=== PATIENT | female | born 1965 | race Caucasian/White ===

== ENCOUNTER 2017-08-06 19:19 | Observation (INO) ==
[2017-08-06] MEDS ORDERED: *HR* Heparin 5,000 UNIT/ML VIAL ONE (19:31)
[2017-08-06] MEDS ORDERED: *HR* Ticagrelor 90 MG TABLET ONE (19:31)
[2017-08-06] MEDS ORDERED: 0.9 % Sodium Chloride 1,000 ML ONE (19:31)
[2017-08-06] MEDS ORDERED: Aspirin 81 MG TAB.CHEW ONE (19:31)
[2017-08-06] MEDS ORDERED: Nitroglycerin 0.4 MG TAB.SUBL SL PRN (19:44)
[2017-08-06 19:56] LABS: Basophils % 0.4 %; Eosinophils # 0.2 K/mcL (0.0-0.6); Hematocrit 38.7 % (35.3-44.9); Hemoglobin 12.5 g/dL (11.5-15.4); Immature Granulocytes % 0.5 % (0-4); Lymphocytes # 3.1 K/mcL (0.6-4.6); Lymphocytes % 30.3 %; Mean Corpuscular HGB Conc 32.3 g/dL (31.6-35.5); Mean Corpuscular Hemoglobin 26.3 pg (28.0-33.3); Mean Corpuscular Volume 81.5 fL (83.0-100.0); Mean Platelet Volume 10.6 fL (9.4-12.4); Monocytes # 0.7 K/mcL (0.0-1.3); Neutrophils # 6.1 K/mcL (1.6-8.9); Platelet Count 216 K/mcL (140-400); Red Blood Count 4.75 M/mcL (3.82-4.97); Red Cell Distribution Width 13.9 % (11.5-14.5); Segmented Neutrophils % 59.8 %
[2017-08-06 20:01] LABS: INR 1.1; Prothrombin Time 11.4 Seconds (9.4-12.1)
[2017-08-06 20:04] LABS: Activated Partial Thrombo Time 31.9 Seconds (26.0-36.0)
[2017-08-06 20:10] LABS: BUN/Creatinine Ratio 24 (6-26); Blood Urea Nitrogen 18 mg/dL (6-20); Calcium 9.6 mg/dL (8.6-10.3); Carbon Dioxide 27 mEq/L (23-29); Chloride 105 mEq/L (98-107); Glucose 99 mg/dL (70-105); Osmolality,Calculated 288 (280-300); Potassium 3.5 mEq/L (3.5-5.1); Sodium 138 mEq/L (136-145); eGFR For African Americans > 60 (> 60); eGFR For Non-African Americans > 60 (> 60)
--- NOTE | 2017-08-06 20:16 | Emergency Department Note ---
Disposition Clinical Impression: Chest pain Qualifiers: Chest pain type: unspecified Qualified Code(s): R07.9 - Chest pain, unspecified Disposition: Admitted As Inpatient Condition: Good Referrals: Orion Everett MD [Primary Care Provider] - Forms: ED Satisfaction Letter Chest Pain HPI - General Chief Complaint: ED Chest Pain Stated Complaint: chest pain Time Seen by Provider: 08/06/17 19:20 Source: patient, EMS Limitations: no limitations Vital Signs Reviewed: Yes Nursing Notes Reviewed: Yes - History of Present Illness HPI Narrative: Patient presents for evaluation of chest pain. Patient had chest pain episode that started yesterday and last for approximately 2 hours. Worse with exertion. Better with rest and time. Patient had chest pain today that started at 4:30 PM. Has been constant since then. Associated shortness of breath and diaphoresis. Patient has not been able to get comfortable in the bed. Her initial prehospital EKG does have worrisome lesions to V1 and V2 upon completion of our EKG there is concern for mild abnormality in anterior leads. 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 Patient's mom had early heart disease and received multiple stents. She has hypertension and high cholesterol. Nonsmoker. Severity scale (1-10): 6 - Related Data Home Medications Medication Instructions Recorded Confirmed Clindamycin 07/07/16 CloNIDine HCl 07/07/16 07/07/16 Gas Relief 07/07/16 Inderal 07/07/16 Lidoderm 07/07/16 Linzess 07/07/16 Lorazepam 07/07/16 Losartan 07/07/16 Nabumetone 07/07/16 Ondansetron 07/07/16 Oxycodone-Acetaminophn 5-325/5 07/07/16 Oxycontin 07/07/16 Qnasl 07/07/16 Sertraline HCl 07/07/16 Tizanidine HCl 07/07/16 Vitamin D 07/07/16 Previous Rx's Medication Instructions Recorded Azithromycin [Azithromycin 6-Tab 250 mg PO DAILY #6 tab 07/07/16 Pack] Benzonatate [Tessalon] 200 mg PO TID PRN #30 capsule 07/07/16 Fluconazole [Diflucan] 150 mg PO Q3D #2 tab 02/23/17 Guaifenesin/Pseudoephedrne HCl 1 each PO BID #20 tab.er.12h 02/23/17 [Mucinex D ER 1,200-120 mg Tab] Loratadine [Allergy Relief] 10 mg PO DAILY #30 tablet 02/23/17 Doxycycline 100 mg PO BID #14 capsule 03/15/17 Mupirocin [Bactroban Oint] 1 appl TP BID 7 Days tube 03/15/17 Allergies Allergy/AdvReac Type Severity Reaction Status Date / Time clarithromycin [From Biaxin] Allergy Nausea Verified 07/07/16 15:45 codeine Allergy Rash Verified 07/07/16 15:45 Erythromycin Base Allergy Nausea Verified 07/07/16 15:45 sulfamethoxazole Allergy Rash Verified 07/07/16 15:45 [From Bactrim] trimethoprim [From Bactrim] Allergy Rash Verified 07/07/16 15:45 Review of Systems: CONSTITUTIONAL: Diaphoresis No weight loss, fever, chills, weakness or fatigue. HEENT: Eyes: No visual changes. Ears, Nose, Throat: No hearing loss, difficulty talking or unable to swallow. SKIN: No rash or itching. CARDIOVASCULAR: Chest pain RESPIRATORY: Shortness of breath GASTROINTESTINAL: No anorexia, nausea, vomiting or diarrhea. No abdominal pain or blood. GENITOURINARY: No burning on urination or hematuria. NEUROLOGICAL: No headache, dizziness, syncope, paralysis, ataxia, numbness or tingling in the extremities. No change in bowel or bladder control. MUSCULOSKELETAL: No muscle pain, back pain, joint pain or stiffness. Chest Pain PMH - Past Medical History Medical history: Reports: hyperlipidemia, hypertension Psychiatric history: Reports: no psych history - Social History Smoking Status: Never smoker Alcohol use: Reports: none Drug use: Reports: none Physical Exam General: Well appearing, nontoxic, no acute distress Head: Normocephalic Atraumatic Eyes: PERRL, EOMI ENT: Airway patent, no stridor Neck: supple, no meningismus Chest: Lungs clear to auscultation bilateral Cardiac: Regular rate and rhythm, no murmurs, rubs or gallops Abdomen: soft, nontender, nondistended; no guarding, rebound, or tenderness to percussion Musculoskeletal: Calves symmetric, nontender, no palpable cord Skin: No rash, normal skin tone Neuro: Alert and Oriented to person, place, and time; No focal deficit, CN 2-12 symmetric and intact - General Limitations: no limitations General appearance: alert Course - Reevaluation(s) Reevaluation #1: Patient's chest pain resolved with nitroglycerin. Patient said intermittent bigeminy with associated PVCs. The patient etiologies include cardiac disease versus vasospasm versus other. - Consultations Consultation #1: STEMI alert was activated secondary to concerns of ST elevations in V1 and V2. Not typical or straightforward STEMI. Only receptacles or with the wide complex beats. Discussed with Dr. Freedman. Patient does not meet STEMI alert criteria. STEMI alert canceled. Consultation #2: Discussed with hospitalist, Dr. Ro. Patient accepted for admission. Vital Signs Temperature 97.6 F 08/06/17 19:21 Pulse Rate 79 08/06/17 19:21 Respiratory Rate 20 08/06/17 19:21 Blood Pressure 133/71 08/06/17 19:21 O2 Sat by Pulse Oximetry 99 08/06/17 19:21 Temperature 97.6 F 08/06/17 19:21 Pulse Rate 58 08/06/17 20:50 Respiratory Rate 16 08/06/17 20:50 Blood Pressure 98/57 08/06/17 20:50 O2 Sat by Pulse Oximetry 98 08/06/17 20:50 Oxygen Delivery Oxygen Delivery Room Air Chest Pain - Medical Records Medical records reviewed: Yes I reviewed the patient's medical records. - Lab Data Lab results reviewed: Yes I reviewed the patient's lab results. Result diagrams: 08/06/17 19:45 08/06/17 19:45 Lab Results 08/06/17 08/06/17 08/06/17 Range/Units 19:45 19:45 19:45 WBC 10.3 (4.3-11.1) K/mcL RBC 4.75 (3.82-4.97) M/mcL Hgb 12.5 (11.5-15.4) g/dL Hct 38.7 (35.3-44.9) % MCV 81.5 L (83.0-100.0) fL MCH 26.3 L (28.0-33.3) pg MCHC 32.3 (31.6-35.5) g/dL RDW 13.9 (11.5-14.5) % Plt Count 216 (140-400) K/mcL MPV 10.6 (9.4-12.4) fL Immature Gran % 0.5 (0-4) % Seg Neutrophils % 59.8 % Lymphocytes % 30.3 % Monocytes % 7.0 % Eosinophils % 2.0 % Basophils % 0.4 % Neutrophils # 6.1 (1.6-8.9) K/mcL Lymphocytes # 3.1 (0.6-4.6) K/mcL Monocytes # 0.7 (0.0-1.3) K/mcL Eosinophils # 0.2 (0.0-0.6) K/mcL Basophils # 0.0 (0.0-0.2) K/mcL PT 11.4 (9.4-12.1) Seconds INR 1.1 APTT 31.9 (26.0-36.0) Seconds Sodium 138 (136-145) mEq/L Potassium 3.5 (3.5-5.1) mEq/L Chloride 105 (98-107) mEq/L Carbon Dioxide 27 (23-29) mEq/L BUN 18 (6-20) mg/dL Creatinine 0.74 (0.60-1.20) mg/dL Est GFR ( Amer) > 60 (> 60) Est GFR (Non-Af Amer) > 60 (> 60) BUN/Creatinine Ratio 24 (6-26) Glucose 99 (70-105) mg/dL Calculated Osmolality 288 (280-300) Calcium 9.6 (8.6-10.3) mg/dL Troponin I (< 0.04) ng/mL 08/06/17 Range/Units 19:45 WBC (4.3-11.1) K/mcL RBC (3.82-4.97) M/mcL Hgb (11.5-15.4) g/dL Hct (35.3-44.9) % MCV (83.0-100.0) fL MCH (28.0-33.3) pg MCHC (31.6-35.5) g/dL RDW (11.5-14.5) % Plt Count (140-400) K/mcL MPV (9.4-12.4) fL Immature Gran % (0-4) % Seg Neutrophils % % Lymphocytes % % Monocytes % % Eosinophils % % Basophils % % Neutrophils # (1.6-8.9) K/mcL Lymphocytes # (0.6-4.6) K/mcL Monocytes # (0.0-1.3) K/mcL Eosinophils # (0.0-0.6) K/mcL Basophils # (0.0-0.2) K/mcL PT (9.4-12.1) Seconds INR APTT (26.0-36.0) Seconds Sodium (136-145) mEq/L Potassium (3.5-5.1) mEq/L Chloride (98-107) mEq/L Carbon Dioxide (23-29) mEq/L BUN (6-20) mg/dL Creatinine (0.60-1.20) mg/dL Est GFR ( Amer) (> 60) Est GFR (Non-Af Amer) (> 60) BUN/Creatinine Ratio (6-26) Glucose (70-105) mg/dL Calculated Osmolality (280-300) Calcium (8.6-10.3) mg/dL Troponin I < 0.03 (< 0.04) ng/mL - Radiology Data Radiology results reviewed: Yes I reviewed the patient's radiology results. - EKG Data EKG attestation: Yes I reviewed and interpreted this EKG. EKG results narrative: EKG shows sinus rhythm with every sinus beat followed by a premature ventricular complex. The rate is 77. The ST segment of V1 and V2 is mildly elevated. just shy of [address] elevation. The wider complex lesion has elevation of 2 mm but does not qualifies for Scarbosa criteria. The wide- complex beats of inferior lateral leads shows ST depression. Attestation Statement - Attestation Attestation: I, Nelson Perez MD, personally evaluated this patient and discussed their management with the resident physician. I reviewed the resident's note and agree with the documented findings, medical decision making, and plan of care. 52-year-old female presents to the emergency department with a complaint of mid substernal chest pain which started about 3 hours prior to arrival. She describes the chest pain as a severe pressure in her mid chest. No radiation of the chest pain. She does complain of some nausea and shortness of breath. Mild diaphoresis. No prior history of known heart disease. Patient received aspirin per EMS. She rated the pain a 6 out of 10 at the worst. At present she rates the pain a 2 out of 10. On examination patient is a well-developed well-nourished well-appearing female in no acute distress. She is alert and oriented 3. There is no cyanosis or diaphoresis. Patient does appear somewhat anxious. Chest is nontender to palpation. Breath sounds are clear and equal bilaterally. Heart regular rate and rhythm. Abdomen is soft and nontender with normal bowel sounds. No pedal edema. EKG shows a normal sinus rhythm with frequent PVCs in a bigeminy pattern. Heart rate 78. There is some mild ST elevations in V1 and V2. A STEMI alert was called initially but after review of the EKG by the interventionalists, Dr. Freedman, the STEMI alert was canceled. Chest x-ray was negative. Labs reviewed. Troponin normal. The hospitalist, Dr. Ro, was consulted and accepted admission of the patient.
[2017-08-06] MEDS ORDERED: NON-FORMULARY MEDICATION 1 EACH EACH (Oxycodone Immed Rel 10 MG) PO PRN (23:07)
[2017-08-06] MEDS: *HR* OxyCODONE ER (12 HR) 10 MG TABLET PO SCH (23:36)
[2017-08-06] MEDS ORDERED: Naloxone 0.4 MG/ML INJ IVP PRN (23:42)
[2017-08-06] MEDS ORDERED: *HR* Enoxaparin 80 MG/0.8 ML SYRINGE SQ STA (23:42)
[2017-08-07] MEDS: 0.9 % Sodium Chloride w KCl 20 MEQ/1,000 ML MLS IVC SCH ×2 (00:32→09:19)
--- NOTE | 2017-08-07 00:51 | Internal Med History&Physical ---
Date of Encounter: 08/07/17 Time of Encounter: 23:20 Assessment and Plan (1) Chest pain Current visit: Yes Status: Acute 1. Initial concern is for PE. 2. STAT CTA chest ordered. 3. Lovenox 1 mg/kg given one time. Further dosing pending CT results. 4. Cycle troponins, EKG's, and order ECHO. 5. Consult Cardiology. Qualifiers: Chest pain type: chest pain on breathing Qualified Code(s): R07.1 - Chest pain on breathing; R07.81 - Pleurodynia (2) Symptomatic bradycardia Current visit: Yes Status: Acute 1. Stop beta xavier. 2. Monitor cardiac enzymes and electrolytes -- correct as necessary. 3. CTA chest as above to rule out PE. (3) Dyspnea Current visit: Yes Status: Acute 1. Lung exam normal. 2. Concern for PE is high. CTA chest as above. 3. Lovenox x one dose given. 4. Oxygen as needed and further care pending CT results. Qualifiers: Dyspnea type: shortness of breath Qualified Code(s): R06.02 - Shortness of breath; R06.00 - Dyspnea, unspecified; R06.01 - Orthopnea (4) DVT prophylaxis Current visit: Yes Status: Acute 1. Lovenox x one given. 2. Further prophylaxis vs full anti-coagulation to be determined after CT chest and per day team. Internal Medicine - H&P: HPI Chief complaint: chest pain; SOB Admitted From: Emergency Dept Plans for Post Hospital Care: Home History of present illness: Ms. Castillo is a 52 year old female who presents with a sudden onset of chest pain and profound shortness of breath. Symptoms started 2 days ago and persisted beyond 24 hours. Patient therefore came to the ER for evaluation. Initial workup in the ER was concerning for possible STEMI. A STEMI alert was called and the EKG was reviewed by cardiology. This was not a STEMI per cardiology. Patient was then subsequently admitted to the hospitalist service. Upon my assessment of the patient, patient complains of profound shortness of breath more so than her chest pain. The onset was sudden yesterday and has been persistent. She also complains of skipped heart beats and slow heart rate , all which are new for her. She denies any prior cardiac history or any lung problems. She states she has a history of sarcoid, but I cannot find any confirmation or documentation of that in the old records. She has never had any respiratory complications, however, from sarcoid or any other chronic illness. She is a nonsmoker and never has been. She denies any prolonged travel or any family history or personal history of blood clots. Nonetheless, given her anxiety and complaints of profound dyspnea, I am concerned about a pulmonary embolus. I therefore ordered a one-time dose of Lovenox and a stat CT angiogram of the chest to rule out PE. If these are negative, we will continue with cardiac workup. Past Med Surg Social Fam HX - Past Medical History Attestation: Yes The following information was validated with the patient. Source: patient, old records reviewed Medical history: fibromyalgia, GERD, hyperlipidemia, hypertension Psychiatric history: anxiety, depression - Past Surgical History Surgical History: cholecystectomy, hysterectomy, other (spine surgery) - Social History Smoking Status: Never smoker Smokeless Tobacco Status: No Alcohol use: none Drug use: none Current living situation: Home, With Family Activity Level: Independent ambulation Recent Out of Country Travel Within the Last 8 Weeks: No - Family History Father Living Status: Still Living Hx Family Cardiac Disorders: Yes (BRADYCARDIA) Hx Family Cancer: Yes (LYMPHOMA) Mother Living Status: Still Living Hx Family Cardiac Disorders: Yes (STROKE, CARDIAC STENT .) Internal Medicine - H&P: Meds Calcium Carbonate/Vitamin D3 [Calcium 600 + Vit D Tablet] 1 each PO DAILY [History] Docusate Sodium [Dok] 250 mg PO DAILY PRN 08/06/17 [History] Esomeprazole Magnesium [Nexium] 40 mg PO DAILY 08/06/17 [History] Lidocaine Patch [Lidoderm 5% patch] 1 each TP DAILY PRN 08/06/17 [History] Linaclotide [Linzess] 290 mcg PO DAILY 08/06/17 [History] Losartan/HCTZ [Hyzaar 50-12.5 Tablet] 1 each PO DAILY 08/06/17 [History] OxyCODONE Immed Rel [Roxicodone 10 MG] 10 mg PO BID PRN 08/06/17 [History] Oxycodone HCl [Oxycontin] 30 mg PO Q12H 08/06/17 [History] Propranolol LA (24 HR) [Inderal LA] 60 mg PO HS 08/06/17 [History] Sertraline [Zoloft] 150 mg PO HS 08/06/17 [History] Tizanidine HCl 4 mg PO Q8H PRN 08/06/17 [History] cloNIDine HCl [CloNIDine HCl] 0.1 mg PO DAILY PRN 08/06/17 [History] hydroCHLOROthiazide [Hydrochlorothiazide] 25 mg PO DAILY PRN 08/06/17 [History] 3 Allergy/AdvReac Type Severity Reaction Status Date / Time clarithromycin [From Biaxin] Allergy Nausea Verified 07/07/16 15:45 codeine Allergy Rash Verified 07/07/16 15:45 Erythromycin Base Allergy Nausea Verified 07/07/16 15:45 sulfamethoxazole Allergy Rash Verified 07/07/16 15:45 [From Bactrim] trimethoprim [From Bactrim] Allergy Rash Verified 07/07/16 15:45 - Constitutional Constitutional: no chills, no fever(s), no night sweats - EENT Eyes: no blurry vision, no change in vision Ears: no ear pain, no tinnitus Nose, mouth and throat: no nasal congestion, no sinus pressure, no sore throat - Cardiovascular Cardiovascular ROS IM: chest pain, dyspnea, dyspnea on exertion, irregular heart rhythm, lightheadedness, palpitations, no syncope - Respiratory Respiratory: dyspnea, dyspnea on exertion, no cough, no hemoptysis, no wheezing , no chest congestion, no excessive phlegm production, no change in phlegm color - Gastrointestinal Gastrointestinal: no abdominal pain, no diarrhea, no hematemesis, no hematochezia, no melena, no nausea, no vomiting - Genitourinary Genitourinary: no dysuria, no flank pain, no hematuria - Musculoskeletal Musculoskeletal ROS IM: back pain, no arthralgias - Integumentary Integumentary IM: no rash, no jaundice - Neurological Neurological ROS: dizziness, no focal weakness, no frequent falls, no headache(s ), no vertigo - Psychiatric Psychiatric: no anxiety, no depression - Endocrine Endocrine IM: no polydipsia, no polyuria - Hematologic/Lymphatic Hematologic/Lymphatic: no easy bruising, no lymphadenopathy - Allergic/Immunologic Allergic/Immunologic: no wheezing, no GI upset with certain foods - Constitutional Vitals: Temp Pulse Resp BP Pulse Ox 97.6 F 62 17 97/64 96 08/06/17 22:04 08/06/17 22:04 08/06/17 22:04 08/06/17 22:04 08/06/17 22:08 General appearance: Present: cooperative, mild distress, A&O X 3, pleasant, answers questions appropriately Exam: anxious; complaining of dyspnea and palpitations - Head Head exam: Present: atraumatic, normal inspection - Eye Eye exam: Present: EOMI, PERRL. Absent: scleral icterus Pupils: Present: normal accommodation - ENT ENT exam: Present: mucous membranes dry, normal exam - Neck Neck exam general surgery: Present: full ROM, normal inspection. Absent: tenderness, supple - Expanded Neck Exam Neck exam: Absent: carotid bruit - Respiratory Respiratory exam: Present: CTAB. Absent: chest wall tenderness, rales, rhonchi , wheezes - Cardiovascular Cardiovascular exam: Present: bradycardia (HR in the 40's on auscultation), irregular rhythm, +S1, +S2. Absent: diastolic murmur, JVD, systolic murmur - GI/Abdominal GI/Abdominal exam: Present: normal bowel sounds, soft. Absent: hepatomegaly, mass, splenomegaly, tenderness - Extremities Exam Extremities exam: Present: full ROM, warm, radial pulses palpable and symmetrical. Absent: calf tenderness, cyanotic, joint swelling, pedal edema, tenderness - Back Exam Back exam: Absent: CVA tenderness (L), CVA tenderness (R) - Neurological Exam Neurological exam: Present: alert, CN II-XII intact, oriented X3, no focal deficits - Psychiatric Psychiatric exam: Present: anxious. Absent: depressed - Skin Skin exam: Present: dry, warm. Absent: rash Internal Med - H&P Results - Labs CBC & Chem 7: 08/06/17 19:45 08/06/17 19:45 - EKG Data -: EKG Interpreted by Myself - EKG Data Prior EKG available for review: no EKG comments: 08/07/17 01:09 Sinus rhythm with bigemeny throughout EKG - Diagnostic Studies Chest x-ray Status: image reviewed by me (negative)
[2017-08-07 03:06] LABS: Basophils % 0.4 %; Eosinophils # 0.2 K/mcL (0.0-0.6); Eosinophils % 2.4 %; Hematocrit 37.2 % (35.3-44.9); Hemoglobin 11.9 g/dL (11.5-15.4); Immature Granulocytes % 0.7 % (0-4); Lymphocytes # 3.4 K/mcL (0.6-4.6); Lymphocytes % 37.6 %; Mean Corpuscular Hemoglobin 26.3 pg (28.0-33.3); Mean Corpuscular Volume 82.1 fL (83.0-100.0); Mean Platelet Volume 10.9 fL (9.4-12.4); Monocytes # 0.6 K/mcL (0.0-1.3); Monocytes % 6.2 %; Neutrophils # 4.7 K/mcL (1.6-8.9); Platelet Count 168 K/mcL (140-400); Red Blood Count 4.53 M/mcL (3.82-4.97); Segmented Neutrophils % 52.7 %
[2017-08-07 03:26] LABS: Alanine Aminotransferase 13 Units/L (7-52); Albumin 3.8 g/dL (3.5-5.7); Albumin/Globulin Ratio 1.7 (1.1-2.2); Alkaline Phosphatase 40 Units/L (34-104); Aspartate Amino Transferase 14 Units/L (13-39); BUN/Creatinine Ratio 24 (6-26); Bilirubin,Total 0.2 mg/dL (0.3-1.0); Blood Urea Nitrogen 17 mg/dL (6-20); Carbon Dioxide 26 mEq/L (23-29); Chloride 108 mEq/L (98-107); Chol/HDL Ratio 6.3 (0-4.9); Cholesterol 175 mg/dL (< 200); Globulin 2.2 g/dL (2.4-3.5); Glucose 116 mg/dL (70-105); HDL Cholesterol 28 mg/dL (40-59); LDL Cholesterol,Calculated 103 mg/dL (0-99); Magnesium 2.3 mg/dL (1.6-2.6); Osmolality,Calculated 291 (280-300); Potassium 3.9 mEq/L (3.5-5.1); Sodium 139 mEq/L (136-145); Triglycerides 218 mg/dL (< 150); eGFR For African Americans > 60 (> 60); eGFR For Non-African Americans > 60 (> 60)
--- NOTE | 2017-08-07 15:23 | Cardiology Consult Note ---
Date of Encounter: 08/07/17 Time of Encounter: 15:20 Assessment and Plan (1) PVCs (premature ventricular contractions) Current Visit: Yes Status: Acute Noted on admission. Would check echo and stress test if echo normal. Will switch inderal to coreg for symptomatic treatment. (2) Chest pain Current Visit: Yes Status: Acute Possibly related to PVCs. Would complete SHANDA and if negative w/U aas above. Qualifiers: Chest pain type: chest pain on breathing Qualified Code(s): R07.1 - Chest pain on breathing; R07.81 - Pleurodynia Discussion w patient/family: The assessment and plan as outlined above was discussed with the patient and/or family members who expressed understanding and agreement. All questions were answered. Thank you for involving us in the care of your patient. Please call with any questions. History of Present Illness Consult date: 08/07/17 Requesting physician: Nai Woo Consult reason: Chest pain Chief complaint: SOB, palpitations, chest pressure History of present illness: Ms. Castillo is a 52 year old female with no previous cardiac history. She presented with episodes of palpitations, SOB and chest pressure. She has been having similar episodes for several months, although yesterdays episode was more severe. Past Med Surg Social Fam HX - Past Medical History Medical history: fibromyalgia, GERD, hyperlipidemia, hypertension Psychiatric history: anxiety, depression - Past Surgical History Surgical History: cholecystectomy, hysterectomy, other (spine surgery) - Social History Smoking Status: Never smoker Smokeless Tobacco Status: No Alcohol use: none Drug use: none - Family History Father Living Status: Still Living Hx Family Cardiac Disorders: Yes (BRADYCARDIA) Hx Family Cancer: Yes (LYMPHOMA) Mother Living Status: Still Living Hx Family Cardiac Disorders: Yes (STROKE, CARDIAC STENT .) Medications and Allergies Calcium Carbonate/Vitamin D3 [Calcium 600 + Vit D Tablet] 1 each PO DAILY [History] Docusate Sodium [Dok] 250 mg PO DAILY PRN 08/06/17 [History] Esomeprazole Magnesium [Nexium] 40 mg PO DAILY 08/06/17 [History] Lidocaine Patch [Lidoderm 5% patch] 1 each TP DAILY PRN 08/06/17 [History] Linaclotide [Linzess] 290 mcg PO DAILY 08/06/17 [History] Losartan/HCTZ [Hyzaar 50-12.5 Tablet] 1 each PO DAILY 08/06/17 [History] OxyCODONE Immed Rel [Roxicodone 10 MG] 10 mg PO BID PRN 08/06/17 [History] Oxycodone HCl [Oxycontin] 30 mg PO Q12H 08/06/17 [History] Propranolol LA (24 HR) [Inderal LA] 60 mg PO HS 08/06/17 [History] Sertraline [Zoloft] 150 mg PO HS 08/06/17 [History] Tizanidine HCl 4 mg PO Q8H PRN 08/06/17 [History] cloNIDine HCl [CloNIDine HCl] 0.1 mg PO DAILY PRN 08/06/17 [History] hydroCHLOROthiazide [Hydrochlorothiazide] 25 mg PO DAILY PRN 08/06/17 [History] 3 Allergy/AdvReac Type Severity Reaction Status Date / Time clarithromycin [From Biaxin] Allergy Nausea Verified 07/07/16 15:45 codeine Allergy Rash Verified 07/07/16 15:45 Erythromycin Base Allergy Nausea Verified 07/07/16 15:45 sulfamethoxazole Allergy Rash Verified 07/07/16 15:45 [From Bactrim] trimethoprim [From Bactrim] Allergy Rash Verified 07/07/16 15:45 All Systems Review: A 10-system review of systems was performed and is negative for pertinent findings except as documented above in the HPI. Physical Examination Vital Signs, Last 4 Hours Temp Pulse Resp BP Pulse Ox 08/07/17 12:07 98.0 F 66 17 129/75 97 General: Conversant, No Apparent Distress HEENT: Atraumatic, Normocephaly, Mucus Membranes Moist Neck: No JVD, Normal carotid pulses Cardiac: Reg Rate and Rhythm, Normal S1 and S2, No Murmur Lungs: Normal Breath Sounds, No Wheeze, Rales, Rhonchi Neuro: Alert and responsive, No focal deficits noted Abdomen: Soft, Non-Tender Skin: No rashes noted on visualized skin Musculoskeletal: No Chest Wall Tenderness Results 08/07/17 02:21 08/07/17 02:21 Lab Results 08/07/17 08/07/17 08/07/17 02:21 02:21 02:21 WBC 9.0 Hgb 11.9 Hct 37.2 Plt Count 168 Sodium 139 Potassium 3.9 Chloride 108 H Carbon Dioxide 26 BUN 17 Creatinine 0.71 Glucose 116 H Calcium 9.0 Magnesium 2.3 Total Bilirubin 0.2 L AST 14 ALT 13 Alkaline Phosphatase 40 Troponin I < 0.03 08/07/17 09:58 WBC Hgb Hct Plt Count Sodium Potassium Chloride Carbon Dioxide BUN Creatinine Glucose Calcium Magnesium Total Bilirubin AST ALT Alkaline Phosphatase Troponin I < 0.03 - EKG Interpretation EKG results cardiology: personally reviewed (Bigeminy, anterio-lateral T wave changes that are adynamic) Consult Discharge Plan - Plan Referrals: Orion Everett MD [Primary Care Provider] - (Appointment has been web requested. )
--- NOTE | 2017-08-07 15:58 | Internal Med Progress Note ---
Date of Encounter: 08/07/17 Time of Encounter: 15:55 - Assessment and plan (1) Chest pain Current Visit: Yes Status: Acute Assessment and plan: Troponins have been negative EKG shows sinus rhythm with PVCs Echo has been obtained Consult to cardiology Nitroglycerin as needed for chest pain Cardiology has seen patient and advised to complete echo is normal to proceed with stress test Patient received on Coreg per cardiology Continuous cardiac monitoring Qualifiers: Chest pain type: chest pain on breathing Qualified Code(s): R07.1 - Chest pain on breathing; R07.81 - Pleurodynia (2) Symptomatic bradycardia Current Visit: Yes Status: Acute Assessment and plan: Patient presented with symptomatic bradycardia her heart rate was in the 40s at home. All medications were held Inderal CTA was obtained which was negative for any PE (3) PVCs (premature ventricular contractions) Current Visit: Yes Status: Acute Assessment and plan: 1 . Cardiology has been consulted Will monitor lab work And he has cardiac monitoring Per cardiology switch Maik to Coreg for symptomatic treatment (4) DVT prophylaxis Current Visit: Yes Status: Acute Assessment and plan: Lovenox subcutaneous - Subjective Interval history: Patient presented with sudden onset of chest pain and profound shortness of breath has had symptoms for the past 2 days and Palpitations She said her heart rate was in the 40s at home CTA was completed in ER which was negative for PE. Presently she denies any chest pain or shortness of breath. No palpitations at this time. - Constitutional Vitals: Temp Pulse Resp BP Pulse Ox 98.0 F 66 17 129/75 97 08/07/17 12:07 08/07/17 12:07 08/07/17 12:07 08/07/17 12:07 08/07/17 12:07 General appearance: Present: cooperative, mild distress, A&O X 3, pleasant, answers questions appropriately - Head Head exam: Present: atraumatic, normocephalic - Eye Eye exam: Present: PERRL, conjuntiva pink, sclera anicteric Pupils: Present: PERRL - Neck Neck exam general surgery: Present: supple, trachea midline. Absent: lymphadenopathy - Respiratory Respiratory exam: Present: CTAB. Absent: accessory muscle use, rales, rhonchi, wheezes - Cardiovascular Cardiovascular exam: Present: RRR, +S1, +S2. Absent: diastolic murmur, gallop, rubs, systolic murmur - GI/Abdominal GI/Abdominal exam: Present: normal bowel sounds, soft, no peritoneal signs. Absent: distended, tenderness - Extremities Exam Extremities exam: Present: warm, radial pulses palpable and symmetrical. Absent : calf tenderness, cyanotic, pedal edema - Neurological Exam Neurological exam: Present: CN II-XII intact, oriented X3, no focal deficits. Absent: pronater drift, facial droop, speech deficit - Skin Skin exam: Present: dry, intact Internal Medicine: Result - Labs CBC & Chem 7: 08/07/17 02:21 08/07/17 02:21 Labs: Short CBC 08/07/17 Range/Units 02:21 WBC 9.0 (4.3-11.1) K/mcL Hgb 11.9 (11.5-15.4) g/dL Hct 37.2 (35.3-44.9) % Plt Count 168 (140-400) K/mcL Neutrophils # 4.7 (1.6-8.9) K/mcL BMP 08/07/17 02:21 Sodium 139 Potassium 3.9 Chloride 108 H Carbon Dioxide 26 BUN 17 Creatinine 0.71 Glucose 116 H Calcium 9.0 Cardiac Enzymes 08/07/17 08/07/17 Range/Units 02:21 09:58 Troponin I < 0.03 < 0.03 (< 0.04) ng/mL Liver Function 08/07/17 Range/Units 02:21 Total Bilirubin 0.2 L (0.3-1.0) mg/dL AST 14 (13-39) Units/L ALT 13 (7-52) Units/L Alkaline Phosphatase 40 (34-104) Units/L Albumin 3.8 (3.5-5.7) g/dL - ABG Interpretation ABG results: PT/INR, D-dimer PT 11.4 Seconds (9.4-12.1) 08/06/17 19:45 - Impressions Impressions Chest CTA 08/07/17 23:50 IMPRESSION: No evidence of pulmonary embolism or acute pulmonary abnormality. D/ / Juan Roth MD / Juan Roth MD Interpreting Provider: Juan Roth MD Echocardiogram 08/07/17 23:50 Impressions: LVEF 60-65%. Normal left ventricular diastolic function. Normal right ventricular structure and function. Mild-moderate aortic regurgitation. Mild mitral regurgitation. No pulmonary hypertension. Left Ventricular Wall Motion: Rest Echo Findings All wall segments showed normal motion. Findings: Study Quality * Technically adequate exam. ECG Findings * Normal sinus rhythm. Left Ventricle * LVEF 60-65%. * Normal LV chamber size, wall thickness and function. * Normal left ventricular diastolic function. Left Atrium * Normal left atrial size. Right Atrium * Normal right atrial size. Aortic Valve * Trileaflet aortic valve. * No aortic stenosis. * Mild-moderate aortic regurgitation. Mitral Valve * Normal mitral valve structure. * No mitral stenosis. * Mild mitral regurgitation. Tricuspid Valve * Normal tricuspid valve structure. * Trace tricuspid regurgitation. * Estimated RA pressure is 3 mmHg. * Estimated RVSP is 24 mmHg. * No pulmonary hypertension. Pulmonic Valve * Pulmonic valve is not well visualized. * No pulmonic stenosis. * No pulmonic regurgitation. Pulmonary Artery * Pulmonary artery not well visualized. Aorta * Normally sized aortic root. Pericardium * There is no pericardial effusion present. Right Ventricle * Normal right ventricular structure and function. Interatrial Septum * No evidence of PFO by color Doppler. IVC * Normal IVC dimensions and inspiratory collapse. Consult Discharge Plan - Plan Referrals: Orion Everett MD [Primary Care Provider] - (Appointment has been web requested. )
[2017-08-07] MEDS: *HR* OxyCODONE ER (12 HR) 10 MG TABLET PO PRN (17:27)
[2017-08-07] MEDS: *HR* OxyCODONE ER (12 HR) 10 MG TABLET PO SCH (17:59)
[2017-08-07] MEDS ORDERED: *HR* Heparin 5,000 UNIT/ML VIAL SQ SCH (18:00)
[2017-08-07] MEDS: tiZANidine 4 MG TABLET PO PRN (20:59)
[2017-08-07] MEDS ORDERED: *HR* LORazepam 2 MG/ML VIAL IVP PRN (22:04)
[2017-08-08] MEDS: *HR* Enoxaparin 40 MG/0.4 ML SYRINGE SQ SCH (06:18)
[2017-08-08] MEDS: *HR* OxyCODONE ER (12 HR) 10 MG TABLET PO PRN ×2 (07:37→20:22)
--- NOTE | 2017-08-08 09:28 | Cardiology Progress Note ---
Date of Encounter: 08/08/17 Time of Encounter: 09:25 Assessment and Plan (1) Chest pain Current Visit: Yes Status: Acute Suspect secondary to symptomatic PVCs. Switched Inderal to Coreg. Echo LVEF 60-65%, normal wall motion, mild-moderate AR, mild MR. Troponins negative x 3. No ischemic EKG changes. Recommended outpt stress test, but pt would like to have completed as inpt. Will order stress test for tomorrow AM. Cardiology signing off. Reconsult PRN or if stress test is abnormal. Qualifiers: Chest pain type: chest pain on breathing Qualified Code(s): R07.1 - Chest pain on breathing; R07.81 - Pleurodynia (2) PVCs (premature ventricular contractions) Current Visit: Yes Status: Acute Noted on admission and telemetry. Bigeminy yesterday evening. Pt reports palpitations now improved. Switched Inderal to Coreg for symptomatic treatment. Echo EF preserved, no signfiicant findings. Discussion w patient/family: The assessment and plan as outlined above was discussed with the patient and/or family members who expressed understanding and agreement. All questions were answered. Thank you for involving us in the care of your patient. Please call with any questions. I will discuss all the above with Dr. Hernan Freedman and make changes as necessary. Subjective Principal diagnosis: Chest pain, PVCs Interval history: Pt denies recurrent chest pain overnight. Reports she had palpitations last night, since improved. Denies dyspnea. Reports anxiety. Echo resulted--EF preserved, normal wall motion, mild-moderate AR, mild MR. Objective Vital Signs, Last 4 Hours Temp Pulse Resp BP Pulse Ox 08/08/17 07:45 96 08/08/17 06:30 97.9 F 64 16 125/80 96 Vital Signs Temp Pulse Resp BP Pulse Ox 08/08/17 07:45 96 08/08/17 06:30 97.9 F 64 16 125/80 96 08/08/17 03:14 98.2 F 58 16 97/61 96 08/07/17 23:07 98.4 F 61 16 123/78 98 08/07/17 18:47 98.3 F 70 16 112/74 96 08/07/17 15:00 98.2 F 64 16 134/83 97 08/07/17 12:07 98.0 F 66 17 129/75 97 Intake and Output 08/07/17 08/08/17 08/08/17 23:59 07:59 15:59 Other: Weight 74.752 kg Patient Weight 08/08/17 23:59 Weight 74.752 kg General: Conversant, No Apparent Distress HEENT: Atraumatic, Normocephaly, Mucus Membranes Moist Neck: No JVD, Normal carotid pulses Cardiac: Reg Rate and Rhythm, Normal S1 and S2, No Murmur Lungs: Normal Breath Sounds, No Wheeze, Rales, Rhonchi Neuro: Alert and responsive, No focal deficits noted Abdomen: Soft, Non-Tender Skin: No rashes noted on visualized skin Musculoskeletal: No Chest Wall Tenderness Extremities: No Clubbing, No Cyanosis, No Edema, Normal Pulses Results 08/07/17 02:21 08/07/17 02:21 Lab Results 08/07/17 09:58 Troponin I < 0.03 Cardiac Enzymes 08/07/17 Range/Units 09:58 Troponin I < 0.03 (< 0.04) ng/mL Impressions Echocardiogram 08/07/17 23:50 Impressions: LVEF 60-65%. Normal left ventricular diastolic function. Normal right ventricular structure and function. Mild-moderate aortic regurgitation. Mild mitral regurgitation. No pulmonary hypertension. Left Ventricular Wall Motion: Rest Echo Findings All wall segments showed normal motion. Findings: Study Quality * Technically adequate exam. ECG Findings * Normal sinus rhythm. Left Ventricle * LVEF 60-65%. * Normal LV chamber size, wall thickness and function. * Normal left ventricular diastolic function. Left Atrium * Normal left atrial size. Right Atrium * Normal right atrial size. Aortic Valve * Trileaflet aortic valve. * No aortic stenosis. * Mild-moderate aortic regurgitation. Mitral Valve * Normal mitral valve structure. * No mitral stenosis. * Mild mitral regurgitation. Tricuspid Valve * Normal tricuspid valve structure. * Trace tricuspid regurgitation. * Estimated RA pressure is 3 mmHg. * Estimated RVSP is 24 mmHg. * No pulmonary hypertension. Pulmonic Valve * Pulmonic valve is not well visualized. * No pulmonic stenosis. * No pulmonic regurgitation. Pulmonary Artery * Pulmonary artery not well visualized. Aorta * Normally sized aortic root. Pericardium * There is no pericardial effusion present. Right Ventricle * Normal right ventricular structure and function. Interatrial Septum * No evidence of PFO by color Doppler. IVC * Normal IVC dimensions and inspiratory collapse. Active Medications Aspirin (Aspirin) 81 mg PO DAILY LUIS Stop: 02/07/18 09:01 Atorvastatin Calcium (Lipitor) 40 mg PO HS LUIS Stop: 02/07/18 21:01 Carvedilol (Coreg) 3.125 mg PO BIDWM LUIS PRN Reason: Protocol Stop: 02/06/18 17:01 Last Admin: 08/08/17 07:37 Dose: 3.125 mg Docusate Sodium (Colace) 200 mg PO DAILY PRN PRN Reason: Constipation Last Admin: 08/07/17 20:54 Dose: 200 mg Enoxaparin Sodium (Lovenox) 40 mg SQ 0700 LUIS PRN Reason: Protocol Stop: 02/07/18 07:01 Last Admin: 08/08/17 06:18 Dose: 40 mg Lidocaine HCl (Lidoderm 5% Patch) 1 each TP DAILY PRN PRN Reason: Pain Stop: 02/05/18 23:54 Lorazepam (Ativan) 1 mg IVP Q8HR PRN PRN Reason: Anxiety Stop: 02/06/18 22:05 Last Admin: 08/07/17 22:21 Dose: 1 mg Naloxone HCl (Narcan) 0.4 mg IVP Q2MIN PRN PRN Reason: SEE COMMENTS Stop: 02/05/18 23:43 Nitroglycerin (Nitroglycerin) 0.4 mg SL Q5MIN PRN PRN Reason: Chest Pain Stop: 02/05/18 19:45 Last Admin: 08/06/17 20:12 Dose: 0.4 mg Omeprazole (Prilosec) 20 mg PO DAILY LUIS Stop: 02/06/18 09:01 Last Admin: 08/08/17 07:37 Dose: 20 mg Oxycodone HCl (Oxycontin) 30 mg PO Q12H PRN PRN Reason: Pain Stop: 02/05/18 23:16 Last Admin: 08/08/17 07:37 Dose: 30 mg Polyethylene Glycol (Miralax) 17 gm PO DAILY PRN PRN Reason: Constipation Stop: 02/06/18 20:44 Last Admin: 08/07/17 20:54 Dose: 17 gm Sertraline HCl (Zoloft) 150 mg PO HS LUIS Stop: 02/06/18 21:01 Last Admin: 08/07/17 19:27 Dose: 150 mg Tizanidine HCl (Zanaflex) 4 mg PO Q8H PRN PRN Reason: Muscle Spasm Stop: 02/05/18 23:54 Last Admin: 08/07/17 20:59 Dose: 2 mg - Imaging and Cardiology Echo: report reviewed - EKG Interpretation EKG results cardiology: other (12 hr tele AVG HR 61, SR, PVCs/bigeminy, PACs noted) Consult Discharge Plan - Plan Referrals: Orion Everett MD [Primary Care Provider] - (Appointment has been web requested. )
[2017-08-08] MEDS ORDERED: Acetaminophen 325 MG TABLET PO PRN (10:46)
[2017-08-08] MEDS ORDERED: Saline Nasal Spray 44 ML BOTTLE NS PRN (10:47)
[2017-08-08] MEDS ORDERED: hydroCHLOROthiazide 25 MG TABLET PO PRN (10:47)
[2017-08-08] MEDS: *HR* LORazepam 0.5 MG TABLET PO PRN ×3 (10:58→20:22)
[2017-08-08] MEDS: Aspirin 81 MG TAB.CHEW PO SCH (10:58)
--- NOTE | 2017-08-08 17:19 | Internal Med Progress Note ---
Date of Encounter: 08/08/17 Time of Encounter: 11:00 - Assessment and plan (1) Chest pain Current Visit: Yes Status: Acute Assessment and plan: Troponins have been negative EKG shows sinus rhythm with PVCs Echo has been obtained Consult to cardiology Nitroglycerin as needed for chest pain Continue Coreg and aspirin will add statin Patient's nothing by mouth after midnight for cardiac stress in the a.m. Qualifiers: Chest pain type: chest pain on breathing Qualified Code(s): R07.1 - Chest pain on breathing; R07.81 - Pleurodynia (2) Symptomatic bradycardia Current Visit: Yes Status: Acute Assessment and plan: Presently sinus rhythm with some PVCs-rates in the 50-70 (3) PVCs (premature ventricular contractions) Current Visit: Yes Status: Acute Assessment and plan: 1 . Cardiology has been consulted Will monitor lab work cardiac monitoring Per cardiology to me with Coreg (4) DVT prophylaxis Current Visit: Yes Status: Acute Assessment and plan: Lovenox subcutaneous - Subjective Interval history: Patient presented with sudden onset of chest pain and profound shortness of breath has had symptoms for the past 2 days and Palpitations She said her heart rate was in the 40s at home CTA was completed in ER which was negative for PE. Presently she denies any chest pain or shortness of breath. No palpitations at this time. - Constitutional Vitals: Temp Pulse Resp BP Pulse Ox 98 F 71 17 120/75 96 08/08/17 12:18 08/08/17 12:18 08/08/17 12:18 08/08/17 12:18 08/08/17 07:45 General appearance: Present: cooperative, mild distress, A&O X 3, pleasant, answers questions appropriately - Head Head exam: Present: atraumatic, normocephalic - Eye Eye exam: Present: PERRL, conjuntiva pink, sclera anicteric Pupils: Present: PERRL - Neck Neck exam general surgery: Present: supple, trachea midline. Absent: lymphadenopathy - Respiratory Respiratory exam: Present: CTAB. Absent: accessory muscle use, rales, rhonchi, wheezes - Cardiovascular Cardiovascular exam: Present: RRR, +S1, +S2. Absent: diastolic murmur, gallop, rubs, systolic murmur - GI/Abdominal GI/Abdominal exam: Present: normal bowel sounds, soft, no peritoneal signs. Absent: distended, tenderness - Extremities Exam Extremities exam: Present: warm, radial pulses palpable and symmetrical. Absent : calf tenderness, cyanotic, pedal edema - Neurological Exam Neurological exam: Present: CN II-XII intact, oriented X3, no focal deficits. Absent: pronater drift, facial droop, speech deficit - Skin Skin exam: Present: dry, intact Internal Medicine: Result - Labs CBC & Chem 7: 08/07/17 02:21 08/07/17 02:21 - ABG Interpretation ABG results: PT/INR, D-dimer PT 11.4 Seconds (9.4-12.1) 08/06/17 19:45 Consult Discharge Plan - Plan Referrals: Orion Everett MD [Primary Care Provider] - (Appointment has been web requested. )
[2017-08-08] MEDS: Artificial Tears SOLN 15 ML BOTTLE BOTH EYES SCH ×2 (17:58→20:23)
[2017-08-08] MEDS: tiZANidine 4 MG TABLET PO PRN (21:12)
[2017-08-09] MEDS: *HR* Enoxaparin 40 MG/0.4 ML SYRINGE SQ SCH (06:03)
[2017-08-09] MEDS: *HR* LORazepam 0.5 MG TABLET PO PRN ×3 (06:09→14:57)
[2017-08-09] MEDS: Regadenoson 0.4 MG/5 ML SYRINGE IVP ONE ×2 (08:30→09:39)
[2017-08-09] MEDS: Artificial Tears SOLN 15 ML BOTTLE BOTH EYES SCH ×2 (10:24→14:52)
[2017-08-09] MEDS: tiZANidine 4 MG TABLET PO PRN (10:25)
[2017-08-09] MEDS: *HR* OxyCODONE ER (12 HR) 10 MG TABLET PO PRN (10:25)
[2017-08-09] MEDS: Aspirin 81 MG TAB.CHEW PO SCH (10:25)
[2017-08-09 12:01] VITALS: BP 119/83
--- NOTE | 2017-08-09 16:10 | Discharge Summary ---
Date of Encounter: 08/09/17 Time of Encounter: 16:10 - Discharge Diagnosis (1) Chest pain Priority: Primary Status: Acute Comments: Troponins have been negative EKG shows sinus rhythm with some PVCs Cardiac echo: Impressions: LVEF 60-65%. Normal left ventricular diastolic function. Normal right ventricular structure and function. Mild-moderate aortic regurgitation. Mild mitral regurgitation. No pulmonary hypertension. She underwent nuclear stress test : Impression: Perfusion imaging was negative for ischemia or infarct. Low level exercise/ pharmacologic stress ECG is negative for ischemia at level of heart rate achieved. No appreciable change from baseline ECG. Gated EF > 70%. We will continue with Coreg and aspirin statin Patient will follow up with cardiology as outpatient Qualifiers: Chest pain type: chest pain on breathing Qualified Code(s): R07.1 - Chest pain on breathing; R07.81 - Pleurodynia (2) Symptomatic bradycardia Priority: Secondary Status: Acute Comments: 1 patient's heart rate has been 60s to 80s and blood pressure has been stable (3) PVCs (premature ventricular contractions) Priority: Primary Status: Acute Comments: Patient has been experiencing PVCs lab work is unremarkable. She underwent cardiac stress with no ischemia or infarct noted She was seen by cardiology she will be initiated on Coreg and will follow-up as an outpatient with circulation librarian - Discharge Medications Prescriptions: Carvedilol [Coreg] 3.125 mg PO BIDWM #60 tablet Home Medications: Calcium Carbonate/Vitamin D3 [Calcium 600 + Vit D Tablet] 1 each PO DAILY [History] Docusate Sodium [Dok] 250 mg PO DAILY PRN 08/06/17 [History] Esomeprazole Magnesium [Nexium] 40 mg PO DAILY 08/06/17 [History] Lidocaine Patch [Lidoderm 5% patch] 1 each TP DAILY PRN 08/06/17 [History] Linaclotide [Linzess] 290 mcg PO DAILY 08/06/17 [History] Losartan/HCTZ [Hyzaar 50-12.5 Tablet] 1 each PO DAILY 08/06/17 [History] OxyCODONE Immed Rel [Roxicodone 10 MG] 10 mg PO BID PRN 08/06/17 [History] Oxycodone HCl [Oxycontin] 30 mg PO Q12H 08/06/17 [History] Sertraline [Zoloft] 150 mg PO HS 08/06/17 [History] Tizanidine HCl 4 mg PO Q8H PRN 08/06/17 [History] cloNIDine HCl [CloNIDine HCl] 0.1 mg PO DAILY PRN 08/06/17 [History] hydroCHLOROthiazide [Hydrochlorothiazide] 25 mg PO DAILY PRN 08/06/17 [History] Carvedilol [Coreg] 3.125 mg PO BIDWM #60 tablet 08/09/17 [Rx] Allergies/Adverse Reactions: 3 Allergy/AdvReac Type Severity Reaction Status Date / Time clarithromycin [From Biaxin] Allergy Nausea Verified 07/07/16 15:45 codeine Allergy Rash Verified 07/07/16 15:45 Erythromycin Base Allergy Nausea Verified 07/07/16 15:45 sulfamethoxazole Allergy Rash Verified 07/07/16 15:45 [From Bactrim] trimethoprim [From Bactrim] Allergy Rash Verified 07/07/16 15:45 Procedures/tests Complete & Pending: Procedures Performed prior 72 hours Category Date Time Status CT angio chest [CT] Stat Cat Scan 08/07/17 23:50 Completed NM sabiha perf SPECT multi [NM] Routine Exams 08/08/17 09:32 Taken ECG 12 lead ECG [ECG] AM 0600 Y 08/07/17 06:00 Completed ECG 12 lead ECG [ECG] Routine Y 08/06/17 20:29 Completed ECG 12 lead ECG [ECG] Routine Y 08/07/17 14:18 Completed ECG 12 lead ECG [ECG] Routine Y 08/07/17 22:30 Completed EKG [ECG 12 lead ECG] [ECG] Stat Y 08/07/17 21:46 Completed EV echocardiogram Routine Y 08/07/17 23:50 Completed SP pharm nuclear stress Routine Y 08/08/17 09:32 Completed Date of admission: 08/06/17 21:14 Primary care physician: Orion Everett MD Consults: 08/06/17 23:44 Consult to Physician [CONS] Routine Consulting Provider: Hernan Freedman Reason for Consult: cehst pain; bigeminy Call Completed: No Discharging clinician: Misa Cage Anticipated date of discharge: 08/09/17 - Patient Status Disposition: Home, Self-Care Condition: Good Functional capacity at discharge: independent ambulation Overall status at discharge: patient is progressing back to baseline - Discharge Instructions Instructions: Chest Pain (DC) Follow Up With: Orion Everett MD [Primary Care Provider] - 08/13/17 3:15 pm () Hospital course: Ms. Castillo is a 52 year old female patient presented to the ER sent onset chest pain profound shortness of breath. She also complains of skipped heartbeats She has not had symptoms for past 2 days prior to arrival. No prior cardiac history. In the ER CT was completed to rule out possible PE which was negative. She was admitted and troponins were trended which were negative EKG did show PVCs as well as bigeminy rhythm. Echo was completely 60-65% EF. Cardiology did see patient and initiated on Coreg for bigeminy. Rest of lab work was unremarkable. She did undergo a cardiac nuclear stress test which did not reveal any ischemia or infarct. She is to follow up with cardiology as outpatient as well as PCP. Patient verbalized understanding M - Time Spent with Patient Total time spent providing and/or coordinating discharge services: Less than 30 minutes - Constitutional Vitals: Temp Pulse Resp BP Pulse Ox 98.7 F 89 18 119/83 97 08/09/17 12:00 08/09/17 12:00 08/09/17 12:00 08/09/17 12:00 08/09/17 12:00 General appearance: Present: cooperative, mild distress, A&O X 3, pleasant, answers questions appropriately - Head Head exam: Present: atraumatic, normocephalic - Eye Eye exam: Present: PERRL, conjuntiva pink, sclera anicteric Pupils: Present: PERRL - Neck Neck exam general surgery: Present: supple, trachea midline. Absent: lymphadenopathy - Respiratory Respiratory exam: Present: CTAB. Absent: accessory muscle use, rales, rhonchi, wheezes - Cardiovascular Cardiovascular exam: Present: RRR, +S1, +S2. Absent: diastolic murmur, gallop, rubs, systolic murmur - GI/Abdominal GI/Abdominal exam: Present: normal bowel sounds, soft, no peritoneal signs. Absent: distended, tenderness - Extremities Exam Extremities exam: Present: warm, radial pulses palpable and symmetrical. Absent : calf tenderness, cyanotic, pedal edema - Neurological Exam Neurological exam: Present: CN II-XII intact, oriented X3, no focal deficits. Absent: pronater drift, facial droop, speech deficit - Skin Skin exam: Present: dry, intact
--- NOTE | 2017-08-10 18:36 | Electrocardiograph Report ---
[place] [address] Test Date: 2017-08-06 Pat Name: Anjana Castillo Department: 104 Room: 3B37 Gender: F Manager Call: SAMM : 1965 Requested By: Nai Woo Order Number: [id number] Reading MD: Liu Phillips MD Measurements Intervals [place] Rate: 77 P: 40 [place]: 132 QRS: 25 QRSD: 85 T: 40 QT: 347 QTc: 379 Interpretive Statements SINUS RHYTHM WITH FREQUENT VENTRICULAR PREMATURE COMPLEXES IN A BIGEMINAL PATTERN Electronically Signed On 08-10-2017 18:34:38 EST by Liu Phillips MD
--- NOTE | 2017-08-10 18:36 | Electrocardiograph Report ---
[place] [address] Test Date: 2017-08-06 Pat Name: Anjana Castillo Department: 104 Room: 3B37 Gender: F Secondary Market Manager: SAMM : 1965 Requested By: Nelson Perez Order Number: [id number] Reading MD: Liu Phillips MD Measurements Intervals [place] Rate: 77 P: 59 [place]: 133 QRS: 30 QRSD: 87 T: 38 QT: 356 QTc: 388 Interpretive Statements SINUS RHYTHM WITH FREQUENT VENTRICULAR PREMATURE COMPLEXES IN A BIGEMINAL PATTERN Electronically Signed On 08-10-2017 18:34:12 EST by Liu Phillips MD
--- NOTE | 2017-08-10 19:40 | Electrocardiograph Report ---
[address] [place], [place] [address] Test Date: 2017-08-07 Pat Name: Anjana Castillo Department: 113 Room: 3B Gender: F Jump Roll Operator: : 1965 Requested By: Nai Woo Order Number: [id number] Reading MD: Liu Phillips MD Measurements Intervals [place] Rate: 65 P: 41 [place]: 136 QRS: 22 QRSD: 93 T: 41 QT: 395 QTc: 406 Interpretive Statements SINUS RHYTHM WITH OCCASIONAL VENTRICULAR PREMATURE COMPLEXES Electronically Signed On 08-10-2017 19:38:45 EST by Liu Phillips MD
--- NOTE | 2017-08-10 20:14 | Electrocardiograph Report ---
[place] [address] Test Date: 2017-08-07 Pat Name: Anjana Castillo Department: 113 Room: 3B37 Gender: Engraver Wood: VIOLETA : 1965 Requested By: Melvin Sterling Order Number: [id number] Reading MD: Liu Phillips MD Measurements Intervals [place] Rate: 68 P: 35 [place]: 134 QRS: 27 QRSD: 88 T: 40 QT: 390 QTc: 408 Interpretive Statements SINUS RHYTHM WITH OCCASIONAL VENTRICULAR PREMATURE COMPLEXES Electronically Signed On 08-10-2017 20:12:50 EST by Liu Phillips MD
--- NOTE | 2017-08-10 20:14 | Electrocardiograph Report ---
[place] [address] Test Date: 2017-08-07 Pat Name: Anjana Castillo Department: 113 Room: 3B Gender: F Pressurised Container Filler: VIOLETA : 1965 Requested By: Americo Quintero Order Number: [id number] Reading MD: Liu Phillips MD Measurements Intervals [place] Rate: 68 P: 34 [place]: 136 QRS: 28 QRSD: 94 T: 40 QT: 392 QTc: 409 Interpretive Statements SINUS RHYTHM WITH OCCASIONAL VENTRICULAR PREMATURE COMPLEXES Electronically Signed On 08-10-2017 20:12:58 EST by Liu Phillips MD
--- NOTE | 2017-08-10 20:15 | Electrocardiograph Report ---
[address] [place], [place] [address] Test Date: 2017-08-07 Pat Name: CRISPIN NAVARRETE Department: 113 Room: 37 Gender: Female Sagger Maker: VIOLETA : 1965 Requested By: Nai Woo Order Number: [id number] Reading MD: Liu Phillips MD Measurements Intervals [place] Rate: 61 P: 27 [place]: 134 QRS: 26 QRSD: 91 T: 45 QT: 394 QTc: 397 Interpretive Statements SINUS RHYTHM WITH FREQUENT VENTRICULAR PREMATURE COMPLEXES Electronically Signed On 08-10-2017 20:13:42 EST by Liu Phillips MD
== END 2017-08-09 17:07 | disposition home or self-care (01) ==
LOC: 3BNU 19:19 → EMEROO 19:19 → 3BNU 21:23
PROVIDERS: ADMIT Internal Medicine; ATTEND Registered Nurse